=== PATIENT | female | born 1965 | race Asian ===

== ENCOUNTER 2016-09-24 22:44 | Emergency (ER) | payer OTHER ==
[2016-09-24 23:18] VITALS: RESP 16
[2016-09-24] MEDS ORDERED: ONDANSETRON 4 MG/2 ML VIAL IVP ONE (23:23)
[2016-09-24] MEDS ORDERED: FAMOTIDINE 20 MG/2 ML SDV IVP ONE (23:23)
[2016-09-24] MEDS ORDERED: NS 1,000 ML IV ONE (23:24)
[2016-09-24] MEDS ORDERED: fentaNYL 100 MCG/2 ML INJ IVP ONE (23:26)
[2016-09-24 23:31] LABS: % IMMATURE GRANULYOCYTES 0.4 % (0.0-1.1); ABSOLUTE IMMATURE GRANULOCYTES 0.05 10^3/uL (0.00-0.10); ADD DIFF? NO; ADD MORPH? NO; ADD SCAN? NO; ATYPICAL LYMPHOCYTE FLAG 0 (0-99); FRAGMENT RBC FLAG 0 (0-99); HEMATOCRIT 41.7 % (38.0-47.0); HEMOGLOBIN 14.5 g/dL (12.6-16.3); LEFT SHIFT FLG 0 (0-99); LIPEMIA HEMOLYSIS FLAG 90 (0-99); MEAN CELL HEMOGLOBIN 30.7 pg (27.9-34.1); MEAN CELL HEMOGLOBIN CONCENTR. 34.8 g/dL (32.4-36.7); MEAN CELL VOLUME 88.2 fL (81.5-99.8); MEAN PLATELET VOLUME 11.5 fL (8.7-11.7); PLATELET CLUMPS FLAG 0 (0-99); PLATELET COUNT 246 10^3/uL (150-400); RED BLOOD CELL COUNT 4.73 10^6/uL (4.18-5.33); RED CELL DISTRIBUTION WIDTH 12.6 % (11.5-15.2)
[2016-09-24 23:40] LABS: ALANINE AMINOTRANSFERASE 50 IU/L (9-52); ALBUMIN 4.5 g/dL (3.5-5.0); ALKALINE PHOSPHATASE 36 IU/L (38-126); ANION GAP 18 mEq/L (8-16); ASPARTATE AMINOTRANSFERASE 25 IU/L (14-46); BILIRUBIN,TOTAL 0.7 mg/dL (0.1-1.4); BILIRUBIN-CONJUGATED 0.4 mg/dL (0.0-0.5); BILIRUBIN-UNCONJUGATED 0.3 mg/dL (0.0-1.1); CALCIUM 9.9 mg/dL (8.5-10.4); CARBON DIOXIDE 21 mEq/l (22-31); CHLORIDE 100 mEq/L (97-110); CREATININE 0.6 mg/dL (0.6-1.0); GLOMERULAR FILTRATION RATE > 60; GLUCOSE 161 mg/dL (70-100); POTASSIUM 3.1 mEq/L (3.5-5.2); SODIUM 139 mEq/L (134-144); TOTAL PROTEIN 7.9 g/dL (6.3-8.2)
[2016-09-25] MEDS ORDERED: fentaNYL 100 MCG/2 ML INJ IVP ONE ×2 (00:14→00:47)
--- NOTE | 2016-09-25 00:14 | EDPHY ---
H & P Time Seen by Provider: 09/24/16 22:56 HPI/ROS: CC: Nausea, vomiting, diarrhea and epigastric pain HPI: This 50-year-old female with past medical history of hypothyroidism and hypertension presents today with her and a friend after complaining of nausea and epigastric discomfort since 9:00 a.m. this morning. She and her both drank a product called [employer] this morning. About 30 minutes to an hour after having this product they both started feeling nauseated and had abdominal discomfort. The had a few episodes of diarrhea that subsequently resolved. At about 8:00 p.m. this evening the patient herself started developing vomiting and diarrhea. She describes her epigastric discomfort as a twisting type of pain and rates it at 9/10. She drank honey water which made it worse. She had about 6 episodes of vomiting and 3 episodes of diarrhea. She did not notice any blood in either the emesis or the stool. She denies fever but has felt chilled. She has not been ill recently and felt fine this morning prior to drinking the milk. She denies headache, dizziness, sore throat, neck pain, chest pain, shortness of breath, dysuria, or chance of . Her last menstrual period was 4 days ago. She is by . REVIEW OF SYSTEMS: Constitutional: No fever Eyes: No discharge ENT: No sore throat Respiratory: No cough, no shortness of breath Cardiac: No chest pain, no palpitations Gastrointestinal: No melana Genitourinary: No hematuria, no dysuria Musculoskeletal: No back pain Skin: No rashes Neurological: No headache Past Medical/Surgical History: Past medical history includes hypothyroidism and hypertension Past surgical history includes Family history includes hypertension and diabetes mellitus No known drug allergies Meds: Euthyrox 50 mcg Bayotensin No primary care provider as she and her just moved here from [place]. Social History: Denies tobacco use, alcohol use, marijuana use. . One child. Recently moved here with her from [place]. Smoking Status: Never smoked Physical Exam: General Appearance: Alert, mod distress; Up to bathroom to vomit. Eyes: Pupils equal and round no pallor or injection. ENT, Mouth: Mucous membranes are moist. Respiratory: There are no retractions, lungs are clear to auscultation. Cardiovascular: Regular rate and rhythm. Gastrointestinal: Abdomen is soft, non-distended. Tender to palpation in the epigastric, suprapubic and RLQ, no masses, bowel sounds hyperactive. Back: No CVA tenderness to percussion. Neurological: Awake and alert, sensory and motor exams grossly normal. Skin: Warm and dry, no rashes. Musculoskeletal: Neck is supple nontender. Extremities are symmetrical, full range of motion. Psychiatric: Patient is oriented X 3, there is no agitation. DIFFERENTIAL DIAGNOSIS: After history and physical exam differential diagnosis was considered for but not limited to gastroenteritis, food toxicity, biliary disease, UTI, appendicitis, . Unlikely ovarian cyst, PID. Constitutional: Initial Vital Signs Temperature (C) 97.7 F 09/24/16 22:55 Heart Rate 68 09/24/16 22:55 Respiratory Rate 16 09/24/16 22:55 Blood Pressure 164/96 H 09/24/16 22:55 O2 Sat (%) 96 09/24/16 22:55 O2 Delivery Mode Room Air O2 (L/minute) 2 Allergies/Adverse Reactions: No Known Allergies Allergy (Unverified 09/24/16 23:14) Home Medications: Medication Instructions Recorded Bayotensin 09/25/16 Thyroid Med 09/25/16 Medical Decision Making ED Course/Re-evaluation: The patient was seen and examined and vital signs reviewed. She was mildly hypertensive. She was unable to keep her blood pressure medication down today. She was given 2 L of IV fluid for hydration. She had 2 doses of Zofran with fluctuating results and was subsequently given Benadryl for nausea as well with improvement. She only had one episode of vomiting and no diarrhea while in the ED. She received fentanyl in titrated doses for her pain. She also received Pepcid IV push. She was unable to tolerate a GI cocktail. Her white count was mildly elevated with a slight left shift. She is not anemic. Her chemistry panel was significant for a nonfasting blood glucose in the 160s and a mild hypokalemia of 3.1. Her liver function tests and lipase were within normal limits. Her urine was normal and she is not . She had multiple serial abdominal exams which fluctuated regarding her discomfort. The epigastric pain was persistent but the suprapubic pain and right lower quadrant discomfort fluctuated in intensity. There was no RUQ or LLQ pain. She described the right lower quadrant pain as only a 3/10. She was offered a CT scan to rule out appendicitis on 2 separate occasions and would like to hold off on this. She is aware that if the pain persists she should return to the emergency room in no more than 12 hours for repeat examination and possible CT scan. - Data Points Laboratory Results: Laboratory Results 09/24/16 23:00 09/24/16 23:00 09/25/16 09/24/16 09/24/16 01:30 23:00 23:00 WBC RBC Hgb Hct MCV MCH MCHC RDW Plt Count MPV Neut % (Auto) Lymph % (Auto) [place] % (Auto) Eos % (Auto) Baso % (Auto) Nucleat RBC Rel Count Absolute Neuts (auto) Absolute Lymphs (auto) Absolute Monos (auto) Absolute Eos (auto) Absolute Basos (auto) Absolute Nucleated RBC Immature Gran % Immature Gran # Sodium 139 mEq/L mEq/L (134-144) Potassium 3.1 mEq/L L mEq/L (3.5-5.2) Chloride 100 mEq/L mEq/L (97-110) Carbon Dioxide 21 mEq/l L mEq/l (22-31) Anion Gap 18 mEq/L H mEq/L (8-16) BUN 19 mg/dL mg/dL (7-23) Creatinine 0.6 mg/dL mg/dL (0.6-1.0) Estimated GFR > 60 Glucose 161 mg/dL H mg/dL (70-100) Calcium 9.9 mg/dL mg/dL (8.5-10.4) Total Bilirubin 0.7 mg/dL mg/dL (0.1-1.4) Conjugated Bilirubin 0.4 mg/dL mg/dL (0.0-0.5) Unconjugated Bilirubin 0.3 mg/dL mg/dL (0.0-1.1) AST 25 IU/L IU/L (14-46) ALT 50 IU/L IU/L (9-52) Alkaline Phosphatase 36 IU/L L IU/L (38-126) Total Protein 7.9 g/dL g/dL (6.3-8.2) Albumin 4.5 g/dL g/dL (3.5-5.0) Lipase 154.0 IU/L IU/L (23-300) Beta HCG, Qual NEGATIVE Urine Color YELLOW Urine Appearance CLEAR Urine pH 6.0 (5.0-7.5) Ur Specific [place] 1.025 (1.002-1.030) Urine Protein NEGATIVE (NEGATIVE) Urine Ketones NEGATIVE (NEGATIVE) Urine Blood NEGATIVE (NEGATIVE) Urine Nitrate NEGATIVE (NEGATIVE) Urine Bilirubin NEGATIVE (NEGATIVE) Urine Urobilinogen 0.2 EU EU (0.2-1.0) Ur Leukocyte Esterase NEGATIVE (NEGATIVE) Urine Glucose NEGATIVE (NEGATIVE) 09/24/16 23:00 WBC 13.76 10^3/uL H 10^3/uL (3.80-9.50) RBC 4.73 10^6/uL 10^6/uL (4.18-5.33) Hgb 14.5 g/dL g/dL (12.6-16.3) Hct 41.7 % % (38.0-47.0) MCV 88.2 fL fL (81.5-99.8) MCH 30.7 pg pg (27.9-34.1) MCHC 34.8 g/dL g/dL (32.4-36.7) RDW 12.6 % % (11.5-15.2) Plt Count 246 10^3/uL 10^3/uL (150-400) MPV 11.5 fL fL (8.7-11.7) Neut % (Auto) 89.9 % H % (39.3-74.2) Lymph % (Auto) 7.5 % L % (15.0-45.0) [place] % (Auto) 2.0 % L % (4.5-13.0) Eos % (Auto) 0.1 % L % (0.6-7.6) Baso % (Auto) 0.1 % L % (0.3-1.7) Nucleat RBC Rel Count 0.0 % % (0.0-0.2) Absolute Neuts (auto) 12.36 10^3/uL H 10^3/uL (1.70-6.50) Absolute Lymphs (auto) 1.03 10^3/uL 10^3/uL (1.00-3.00) Absolute Monos (auto) 0.28 10^3/uL L 10^3/uL (0.30-0.80) Absolute Eos (auto) 0.02 10^3/uL L 10^3/uL (0.03-0.40) Absolute Basos (auto) 0.02 10^3/uL 10^3/uL (0.02-0.10) Absolute Nucleated RBC 0.00 10^3/uL 10^3/uL (0-0.01) Immature Gran % 0.4 % % (0.0-1.1) Immature Gran # 0.05 10^3/uL 10^3/uL (0.00-0.10) Sodium Potassium Chloride Carbon Dioxide Anion Gap BUN Creatinine Estimated GFR Glucose Calcium Total Bilirubin Conjugated Bilirubin Unconjugated Bilirubin AST ALT Alkaline Phosphatase Total Protein Albumin Lipase Beta HCG, Qual Urine Color Urine Appearance Urine pH Ur Specific [place] Urine Protein Urine Ketones Urine Blood Urine Nitrate Urine Bilirubin Urine Urobilinogen Ur Leukocyte Esterase Urine Glucose Medications Given: Discontinued Medications Al Hydroxide/Mg Hydroxide (Maalox Susp) 30 ml PO EDNOW ONE Stop: 09/25/16 00:45 Last Admin: 09/25/16 00:53 Dose: 30 ml Diphenhydramine HCl (Benadryl) 25 mg PO EDNOW ONE Stop: 09/25/16 01:51 Last Admin: 09/25/16 01:55 Dose: 25 mg Famotidine (Pepcid) 20 mg IVP EDNOW ONE Stop: 09/24/16 23:24 Last Admin: 09/24/16 23:31 Dose: 20 mg Fentanyl (Sublimaze) 25 mcg IVP EDNOW ONE Stop: 09/24/16 23:27 Last Admin: 09/24/16 23:44 Dose: 25 mcg Fentanyl (Sublimaze) 25 mcg IVP EDNOW ONE Stop: 09/25/16 00:15 Last Admin: 09/25/16 00:22 Dose: 25 mcg Fentanyl (Sublimaze) 12.5 mcg IVP EDNOW ONE Stop: 09/25/16 00:48 Last Admin: 09/25/16 01:16 Dose: 12.5 mcg Hyoscyamine Sulfate (Levsin, Hyomax-Sl) 0.125 mg PO EDNOW ONE Stop: 09/25/16 00:45 Last Admin: 09/25/16 00:52 Dose: 0.125 mg Sodium Chloride (Ns) 1,000 mls @ 0 mls/hr IV EDNOW ONE; Wide Open PRN Reason: Protocol Stop: 09/24/16 23:25 Last Admin: 09/24/16 23:30 Dose: 1,000 mls Sodium Chloride (Ns) 1,000 mls @ 0 mls/hr IV ONCE ONE PRN Reason: Wide Open Stop: 09/25/16 00:18 Last Admin: 09/25/16 00:23 Dose: 1,000 mls Sodium Chloride (Ns) 1,000 mls @ 0 mls/hr IV ONCE ONE PRN Reason: Wide Open Stop: 09/25/16 00:26 Last Admin: 09/25/16 00:30 Dose: Not Given Lidocaine (Lidocaine 2% Viscous) 5 ml PO EDNOW ONE Stop: 09/25/16 00:45 Last Admin: 09/25/16 00:53 Dose: 5 ml Ondansetron HCl (Zofran) 4 mg IVP EDNOW ONE Stop: 09/24/16 23:24 Last Admin: 09/24/16 23:31 Dose: 4 mg Ondansetron HCl (Zofran) 4 mg IVP EDNOW ONE Stop: 09/25/16 01:09 Last Admin: 09/25/16 01:16 Dose: 4 mg Departure - Departure Disposition: Home, Routine, Self-Care Clinical Impression: Nausea and vomiting in adult patient Diarrhea Qualifiers: Diarrhea type: unspecified type Qualified Code(s): R19.7 - Diarrhea, unspecified Abdominal pain Qualifiers: Abdominal location: epigastric Qualified Code(s): R10.13 - Epigastric pain Condition: Good Instructions: Gastroenteritis (ED), Acute Nausea and Vomiting (ED), Acute Diarrhea (ED), Acute Abdominal Pain (ED), Epigastric Pain (ED) Additional Instructions: Establish care with a primary care provider for follow up this week. It is VERY IMPORTANT that you RETURN TO THE EMERGENCY DEPARTMENT within 12 hours if the pain on the right side of your abdomen (upper or lower) persists or if you develop a fever or cannot keep liquids down (continued vomiting). You may return to the ER sooner if worse. (You should also monitor your blood pressure and discuss this with your primary care provider or at your follow up. Your blood pressure was high in the ER tonight. Referrals: NONE *PRIMARY CARE P,. [Primary Care Provider] - As per Instructions Ayala Bates MD [Medical Doctor] - 2-3 days, if not improved Print Language: Maltese Mandarin
[2016-09-25] MEDS ORDERED: NS 1,000 ML IV ONE ×2 (00:17→00:25)
[2016-09-25] MEDS ORDERED: HYOSCYAMINE SULFATE 0.125 MG TAB PO ONE (00:44)
[2016-09-25] MEDS ORDERED: MAG HYDROX/AL HYDROX/SIMETH 30 ML UDCUP PO ONE (00:44)
[2016-09-25] MEDS ORDERED: LIDOCAINE 2% VISCOUS 15 ML UDCUP PO ONE (00:44)
[2016-09-25] MEDS ORDERED: ONDANSETRON 4 MG/2 ML VIAL IVP ONE (01:08)
[2016-09-25 01:38] LABS: COLOR YELLOW; LEUKOCYTE ESTERASE,URINE NEGATIVE (NEGATIVE); NITRITE,URINE NEGATIVE (NEGATIVE)
[2016-09-25] MEDS ORDERED: diphenhydrAMINE 25 MG CAP PO ONE (01:50)
[2016-09-25] MEDS ORDERED: ONDANSETRON 4MG PREPACK#2 BTL TAKEHOME PRN (02:10)
[2016-09-25 02:34] VITALS: BP 127/86; PULSE 71; TEMP 98.8; O2SAT 94
== END 2016-09-25 02:57 | disposition home or self-care (01) ==
LOC: CED 22:44
DX: R10.13 Epigastric pain (principal); R11.2 Nausea with vomiting, unspecified; R19.7 Diarrhea, unspecified; I10 Essential (primary) hypertension; E86.9 Volume depletion, unspecified
CPT/HCPCS: 80048-PO; 80076-PO; 81003-PO; 83690-PO; 84703-PO; 85025-PO; 96374; J2405; J3010